=== PATIENT | male | born 1980 | race Caucasian/White ===

== ENCOUNTER 2016-11-11 11:32 | Emergency (ER) | payer OTHER ==
--- NOTE | 2016-11-11 12:27 | ED NURSING NOTES ---
Clinical Report - Nurses [facility] [address] [place] [address] 11/11/2016 11:35 Patient: CHRISTELLE SOLIS TRIAGE Acuity: LEVEL 3. Chief Complaint: SKIN PROBLEM and BOIL. Alert. No acute distress. SEPSIS SCREEN: Sepsis Screen. Negative (no infection suspected/documented). --11:52 Evelyn Bacon R.N. 11:49 11/11/16. BP: 145/87. HR: 92. RR: 12. O2 saturation: 100%. Temp: 98.3 F (oral). Pain level now: 12/11. --11:52 Evelyn Bacon R.N. Weight: 72.5 kg stated. Height/Length: 68 inches Per Patient. BMI: 24.3. --11:51 Evelyn Bacon R.N. Medications Lisinopril Oral. --11:50 Evelyn Bacon R.N. Medication/allergy information source: the patient. --11:52 Evelyn Bacon R.N. Allergies No Known Drug Allergy. --11:50 Evelyn Bacon R.N. History Arrived by private vehicle. Historian: patient. Unaccompanied. Primary physician (Ce). Reported as located on the abdomen. Onset. (5 days ago). 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 PAST MEDICAL HX: Immunizations: up-to-date. SOCIAL HX: Never smoker. No alcohol use or drug use. FALL RISK ASSESSMENT: Fall risk assessment completed. No fall risk identified. NUTRITIONAL RISK ASSESSMENT: The nutritional risk assessment revealed no deficiencies. FUNCTIONAL ASSESSMENT: Functional assessment: no impairments noted. LEARNING NEEDS ASSESSMENT: The learning needs assessment revealed no barriers. SKIN INTEGRITY ASSESSMENT: Skin integrity risk assessment completed. No skin integrity risk identified. --11:52 Evelyn Bacon R.N. PROBLEMS: Hypertension. --11:51 Evelyn Bacon R.N. ADDITIONAL SURGERIES: Hip Surgery. Knee Surgery. --11:51 Evelyn Bacon R.N. Assessment GENERAL / NEURO / PSYCH: Alert. Oriented X 4. Appears in no acute distress. Patient appears calm and cooperative. RESPIRATORY: Respirations not labored. CVS: Capillary refill less than 2 seconds. GI / : Abdomen nontender. SKIN: Mucous membranes are pink. Skin is warm and dry. --11:52 Evelyn Bacon R.N. Interventions ID band on patient. To treatment room. --11:52 Evelyn Bacon R.N. PHYSICAL ASSESSMENT 11:55 11/11/16. Ambulatory to room. GENERAL / NEURO / PSYCH: Alert. The patient does not appear to be in acute distress. Oriented X 4. HEENT: Mucous membranes are pink. RESPIRATORY: Respirations not labored. CVS: Capillary refill less than 2 seconds. GI / : Abdomen nontender. SKIN: Skin is warm and dry. Single skin lesion with erythema, tenderness and increased warmth on the abdomen. No skin rash. --11:55 Evelyn Bacon R.N. NURSING PROGRESS NOTES 11:55 11/11/16. Patient gowned. Two patient identifiers checked. Call light placed in reach. Side rails up x 1. Patient ready for evaluation- chart flagged and ED physician notified. --11:55 Evelyn Bacon R.N. 12:36 11/11/2016 TDAP IM 0.5 mL given. (Lot#: [id number], expiration date: 06/10/2018). Given in the left deltoid. Allergies verified and confirmed 5 rights. Vaccine information statement provided to the patient. --12:46 Evelyn Bacon R.N. 12:36 11/11/2016 Bactrim DS (Sulfamethoxazole-TMP DS) PO 1 tab given. Allergies verified and confirmed 5 rights. --12:46 Evelyn Bacon R.N. 12:36 11/11/2016 Keflex (Cephalexin) PO 500 mg given. Allergies verified and confirmed 5 rights. --12:46 Evelyn Bacon R.N. DISPOSITION / DISCHARGE 12:40. Condition at departure: improved. No learning barriers present. Discharge instructions provided and reviewed with the patient. Reviewed medication(s) side effects, precautions, dosing and course information. Prescription(s) given to the patient. Patient verbalized understanding. Written instructions provided in [place]. The patient was discharged home and accompanied by nurse educator. He left the Emergency Department ambulatory and via private vehicle. Cellophaner driving. Medication list reviewed and validated. --13:13 Leonela Dobbs R.N. 11:49 11/11/16. BP: 145/87. HR: 92. RR: 12. O2 saturation: 100%. Temp: 98.3 F (oral). Pain level now: 12/11. --13:13 Leonela Dobbs R.N. Locked/Released at 11/11/2016 13:14 by Leonela Dobbs R.N.
--- NOTE | 2016-11-11 12:27 | ED CLINICAL REPORT ---
Clinical Report - Physicians/Mid Levels [facility] [address] [place] [address] 11/11/2016 11:35 [id number] Time Seen: 12:04 Nov 11 2016. Arrived- By private vehicle. Historian- patient. HISTORY OF PRESENT ILLNESS Chief Complaint: SKIN RASH. 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 It has been located on the trunk. A possible cause has been identified. (patient reports recently released from alf about 3 months previously, reports some swelling to the abdomen and some drainage from the area over the last 5 days, patient does shave in area, last treatment about 7 days previously. Denies history of MRSA. Unsure of his last tetanus immunization, believes maybe in 1999. Denies fevers or chills. Denies any direct trauma to the area. Denies nausea or vomiting. Denies diarrhea.). REVIEW OF SYSTEMS No fever, cough or eye irritation. All systems otherwise negative, except as recorded above. SOCIAL HISTORY Never smoker. No alcohol use or drug use. ADDITIONAL NOTES The nursing notes have been reviewed. PHYSICAL EXAM Vital Signs: 11/11/2016 11:49 BP: 145/87. HR: 92. RR: 12. O2 saturation: 100%. Temp: 98.3 F. Pain level now: 4/10. Appearance: Alert. CVS: Normal heart rate and rhythm. Heart sounds normal. Respiratory: No respiratory distress. Breath sounds normal. Skin: Tender indurated area. Cellulitis. Abscess. Rash present on the trunk (superior to umbilicus). There is warmth, tenderness and swelling. PROGRESS AND PROCEDURES Incision & Drainage of Abscess: Time: 12:40 Nov 11 2016. Time-out completed immediately before the procedure. The abscess is located (abd). The risks of the procedure, benefits and alternatives were explained. Consent was obtained. Local anesthesia provided using 1% lidocaine with epi. The abscess was incised with a #11 surgical blade. A small amount of pus was drained. Cavity was packed with gauze. Sample obtained for cultures. A dressing was applied. Course of Care: Incision and drainage with purulent discharge. Patient afebrile, nonseptic. Isolated abscess,packed. Patient given recent exposures to MRSA and alf, will be started on Bactrim and Keflex. Culture pending. Patient is stable. Physical exam findings are improved. Patient/family counseled. Disposition: Discharged. CLINICAL IMPRESSION Single abscess to the abdominal wall with incision and drainage. Hypertension. INSTRUCTIONS (warm packs remove packing in 48 hours in shower). Prescription Medications: Bactrim DS 800 mg / 160 mg: take 1 tablet orally every 12 hours for 10 days. No refill. Substitution is permissible. Keflex 500 mg: take 1 capsule orally every 8 hours for 10 days. No refill. Substitution is permissible. OTC Medications: Take OTC medications according to label instructions. Available over the counter. Acetaminophen (available over the counter): take according to label instructions. Motrin (available over the counter): take according to label instructions. Follow-up: Follow up with your doctor Sunday as needed. (Electronically signed by Maria Isabel Holbrook P.A.-C 11/11/2016 12:41)
--- NOTE | 2016-11-11 12:27 | ED ORDER SUMMARY ---
..... Patient: CHRISTELLE SOLIS OrderSheet [facility] VisitID: [id number] [place] [address] 36y, M Registration Date/Time: 11/11/2016 ORDER SHEET Weight: 72.5 kg (stated) Allergies: No Known Drug Allergy GENERAL ORDERS: Culture, Wound Surface (Abdomen) (ab) Urgent (12:15 11/11/2016 EKoroleva P.A.-C) (Ack 12:17 LTapper) (12:45 MWinterer R.N.) MEDICATION ORDERS: Tdap IM 0.5 mL (NOW, per protocol) (12:15 11/11/2016 EKoroleva P.A.-C) (Ack 12:30 MWinterer R.N.) (12:46 MWinterer R.N.) Bactrim DS PO (Tablet 800-160 mg) 1 tab (NOW) (12:15 11/11/2016 EKoroleva P.A.-C) (Ack 12:30 MWinterer R.N.) (12:46 MWinterer R.N.) Keflex PO 500 mg (NOW) (12:15 11/11/2016 EKoroleva P.A.-C) (Ack 12:30 MWinterer R.N.) (12:46 MWinterer R.N.) IV FLUIDS: ORDER SHEET NOTES: [Electronically signed by Maria Isabel Holbrook P.A.-C (12:41 11/11/2016)] [Electronically signed by Leonela Dobbs R.N. (13:14 11/11/2016)] [Electronically locked/signed by Leonela Dobbs R.N. (13:14 11/11/2016)]
--- NOTE | 2016-11-11 12:27 | ED CLINICAL REPORT ---
Clinical Report - Physicians/Mid Levels [facility] [address] [place] [address] 11/11/2016 11:35 [id number] Time Seen: 12:04 Nov 11 2016. Arrived- By private vehicle. Historian- patient. HISTORY OF PRESENT ILLNESS Chief Complaint: SKIN RASH. 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 It has been located on the trunk. A possible cause has been identified. (patient reports recently released from [facility] about 3 months previously, reports some swelling to the abdomen and some drainage from the area over the last 5 days, patient does shave in area, last treatment about 7 days previously. Denies history of MRSA. Unsure of his last tetanus immunization, believes maybe in 1999. Denies fevers or chills. Denies any direct trauma to the area. Denies nausea or vomiting. Denies diarrhea.). REVIEW OF SYSTEMS No fever, cough or eye irritation. All systems otherwise negative, except as recorded above. SOCIAL HISTORY Never smoker. No alcohol use or drug use. ADDITIONAL NOTES The nursing notes have been reviewed. PHYSICAL EXAM Vital Signs: 11/11/2016 11:49 BP: 145/87. HR: 92. RR: 12. O2 saturation: 100%. Temp: 98.3 F. Pain level now: 4/10. Appearance: Alert. CVS: Normal heart rate and rhythm. Heart sounds normal. Respiratory: No respiratory distress. Breath sounds normal. Skin: Tender indurated area. Cellulitis. Abscess. Rash present on the trunk (superior to umbilicus). There is warmth, tenderness and swelling. PROGRESS AND PROCEDURES Incision & Drainage of Abscess: Time: 12:40 Nov 11 2016. Time-out completed immediately before the procedure. The abscess is located (abd). The risks of the procedure, benefits and alternatives were explained. Consent was obtained. Local anesthesia provided using 1% lidocaine with epi. The abscess was incised with a #11 surgical blade. A small amount of pus was drained. Cavity was packed with gauze. Sample obtained for cultures. A dressing was applied. Course of Care: Incision and drainage with purulent discharge. Patient afebrile, nonseptic. Isolated abscess,packed. Patient given recent exposures to MRSA and [facility], will be started on Bactrim and Keflex. Culture pending. Patient is stable. Physical exam findings are improved. Patient/family counseled. Disposition: Discharged. CLINICAL IMPRESSION Single abscess to the abdominal wall with incision and drainage. Hypertension. INSTRUCTIONS (warm packs remove packing in 48 hours in shower). Prescription Medications: Bactrim DS 800 mg / 160 mg: take 1 tablet orally every 12 hours for 10 days. No refill. Substitution is permissible. Keflex 500 mg: take 1 capsule orally every 8 hours for 10 days. No refill. Substitution is permissible. OTC Medications: Take OTC medications according to label instructions. Available over the counter. Acetaminophen (available over the counter): take according to label instructions. Motrin (available over the counter): take according to label instructions. Follow-up: Follow up with your doctor Sunday as needed. (Electronically signed by Maria Isabel Holbrook P.A.-C 11/11/2016 12:41)
--- NOTE | 2016-11-11 12:27 | ED NURSING NOTES ---
Clinical Report - Nurses [facility] [address] [place] [address] 11/11/2016 11:35 Patient: CHRISTELLE SOLIS TRIAGE Acuity: LEVEL 3. Chief Complaint: SKIN PROBLEM and BOIL. Alert. No acute distress. SEPSIS SCREEN: Sepsis Screen. Negative (no infection suspected/documented). --11:52 Evelyn Bacon R.N. 11:49 11/11/16. BP: 145/87. HR: 92. RR: 12. O2 saturation: 100%. Temp: 98.3 F (oral). Pain level now: 12/11. --11:52 Evelyn Bacon R.N. Weight: 72.5 kg stated. Height/Length: 68 inches Per Patient. BMI: 24.3. --11:51 Evelyn Bacon R.N. Medications Lisinopril Oral. --11:50 Evelyn Bacon R.N. Medication/allergy information source: the patient. --11:52 Evelyn Bacon R.N. Allergies No Known Drug Allergy. --11:50 Evelyn Bacon R.N. History Arrived by private vehicle. Historian: patient. Unaccompanied. Primary physician (Ce). Reported as located on the abdomen. Onset. (5 days ago). 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 PAST MEDICAL HX: Immunizations: up-to-date. SOCIAL HX: Never smoker. No alcohol use or drug use. FALL RISK ASSESSMENT: Fall risk assessment completed. No fall risk identified. NUTRITIONAL RISK ASSESSMENT: The nutritional risk assessment revealed no deficiencies. FUNCTIONAL ASSESSMENT: Functional assessment: no impairments noted. LEARNING NEEDS ASSESSMENT: The learning needs assessment revealed no barriers. SKIN INTEGRITY ASSESSMENT: Skin integrity risk assessment completed. No skin integrity risk identified. --11:52 Evelyn Bacon R.N. PROBLEMS: Hypertension. --11:51 Evelyn Bacon R.N. ADDITIONAL SURGERIES: Hip Surgery. Knee Surgery. --11:51 Evelyn Bacon R.N. Assessment GENERAL / NEURO / PSYCH: Alert. Oriented X 4. Appears in no acute distress. Patient appears calm and cooperative. RESPIRATORY: Respirations not labored. CVS: Capillary refill less than 2 seconds. GI / : Abdomen nontender. SKIN: Mucous membranes are pink. Skin is warm and dry. --11:52 Evelyn Bacon R.N. Interventions ID band on patient. To treatment room. --11:52 Evelyn Bacon R.N. PHYSICAL ASSESSMENT 11:55 11/11/16. Ambulatory to room. GENERAL / NEURO / PSYCH: Alert. The patient does not appear to be in acute distress. Oriented X 4. HEENT: Mucous membranes are pink. RESPIRATORY: Respirations not labored. CVS: Capillary refill less than 2 seconds. GI / : Abdomen nontender. SKIN: Skin is warm and dry. Single skin lesion with erythema, tenderness and increased warmth on the abdomen. No skin rash. --11:55 Evelyn Bacon R.N. NURSING PROGRESS NOTES 11:55 11/11/16. Patient gowned. Two patient identifiers checked. Call light placed in reach. Side rails up x 1. Patient ready for evaluation- chart flagged and ED physician notified. --11:55 Evelyn Bacon R.N. 12:36 11/11/2016 TDAP IM 0.5 mL given. (Lot#: [id number], expiration date: 06/10/2018). Given in the left deltoid. Allergies verified and confirmed 5 rights. Vaccine information statement provided to the patient. --12:46 Evelyn Bacon R.N. 12:36 11/11/2016 Bactrim DS (Sulfamethoxazole-TMP DS) PO 1 tab given. Allergies verified and confirmed 5 rights. --12:46 Evelyn Bacon R.N. 12:36 11/11/2016 Keflex (Cephalexin) PO 500 mg given. Allergies verified and confirmed 5 rights. --12:46 Evelyn Bacon R.N. DISPOSITION / DISCHARGE 12:40. Condition at departure: improved. No learning barriers present. Discharge instructions provided and reviewed with the patient. Reviewed medication(s) side effects, precautions, dosing and course information. Prescription(s) given to the patient. Patient verbalized understanding. Written instructions provided in [place]ian. The patient was discharged home and accompanied by supervisor mending. He left the Emergency Department ambulatory and via private vehicle. Information Operator driving. Medication list reviewed and validated. --13:13 Leonela Dobbs R.N. 11:49 11/11/16. BP: 145/87. HR: 92. RR: 12. O2 saturation: 100%. Temp: 98.3 F (oral). Pain level now: 12/11. --13:13 Leonela Dobbs R.N. Locked/Released at 11/11/2016 13:14 by Leonela Dobbs R.N.
--- NOTE | 2016-11-11 12:27 | ED ORDER SUMMARY ---
..... Patient: CHRISTELLE SOLIS OrderSheet [facility] VisitID: [id number] [place] [address] 36y, M Registration Date/Time: 11/11/2016 ORDER SHEET Weight: 72.5 kg (stated) Allergies: No Known Drug Allergy GENERAL ORDERS: Culture, Wound Surface (Abdomen) (ab) Urgent (12:15 11/11/2016 EKoroleva P.A.-C) (Ack 12:17 LTapper) (12:45 MWinterer R.N.) MEDICATION ORDERS: Tdap IM 0.5 mL (NOW, per protocol) (12:15 11/11/2016 EKoroleva P.A.-C) (Ack 12:30 MWinterer R.N.) (12:46 MWinterer R.N.) Bactrim DS PO (Tablet 800-160 mg) 1 tab (NOW) (12:15 11/11/2016 EKoroleva P.A.-C) (Ack 12:30 MWinterer R.N.) (12:46 MWinterer R.N.) Keflex PO 500 mg (NOW) (12:15 11/11/2016 EKoroleva P.A.-C) (Ack 12:30 MWinterer R.N.) (12:46 MWinterer R.N.) IV FLUIDS: ORDER SHEET NOTES: [Electronically signed by Maria Isabel Holbrook P.A.-C (12:41 11/11/2016)] [Electronically signed by Leonela Dobbs R.N. (13:14 11/11/2016)] [Electronically locked/signed by Leonela Dobbs R.N. (13:14 11/11/2016)]
--- NOTE | 2016-11-11 13:14 | ED MAR SUMMARY ---
..... Medication Administration Record [facility] [address] [place] [address] Patient: CHRISTELLE SOLIS Visit ID: [id number] 36y, M Weight: 72.5 kg Height/Length: 68 in BMI: 24.3 ALLERGIES: No Known Drug Allergy Given 12:11/11/2016 Evelyn Bacon RMehrdad Medication Administered: TDAP [IM], Dose: 0.5 mL IM. Medication Ordered: Tdap IM 0.5 mL (NOW, per protocol). Given 12:11/11/2016 Evelyn Bacon RMeliaNMelia Medication Administered: BACTRIM DS [PO] (SULFAMETHOXAZOLE-TMP DS), Dose: 1 tab PO. Medication Ordered: Bactrim DS PO (Tablet 800-160 mg) 1 tab (NOW). Given 12:11/11/2016 Evelyn Bacon, RMeliaNMelia Medication Administered: KEFLEX [PO] (CEPHALEXIN), Dose: 500 mg PO. Medication Ordered: Keflex PO 500 mg (NOW).
--- NOTE | 2016-11-11 13:14 | ED MED RECONCILIATION SUMMARY ---
Patient: CHRISTELLE SOLIS Medication Reconciliation Report [facility] VisitID: [id number] [place] [address] 36y, M Registration Date/Time: 11/11/2016 Weight: 72.5 kg Height/Length: 68 in. BMI: 24.3 ALLERGIES: No Known Drug Allergy The patient's Home Medications are listed below: THE FOLLOWING MEDICATIONS NEED TO BE RECONCILED: Lisinopril Oral The source(s) of the original Home Medication information: patient The following Medications were given to the patient in the Emergency Department: TDAP [IM] IM 0.5 mL, administered: 11/11/2016 12:36:00 PM Bactrim DS [PO] PO 1 tab, administered: 11/11/2016 12:36:00 PM Keflex [PO] PO 500 mg, administered: 11/11/2016 12:36:00 PM The following Medications were prescribed to the patient: Take OTC medications according to label instructions. Available over the counter. -- Maria Isabel Holbrook, P.A.-C Acetaminophen (available over the counter): take according to label instructions. -- Maria Isabel Holbrook, P.A.-C Motrin (available over the counter): take according to label instructions. -- Maria Isabel Holbrook, P.A.-C Bactrim DS 800 mg / 160 mg: take 1 tablet orally every 12 hours for 10 days. No refill. Substitution is permissible. -- Maria Isabel Holbrook, P.A.-C Keflex 500 mg: take 1 capsule orally every 8 hours for 10 days. No refill. Substitution is permissible. -- Maria Isabel Holbrook, P.A.-C
--- NOTE | 2016-11-11 13:14 | ED MED RECONCILIATION SUMMARY ---
Patient: CHRISTELLE SOLIS Medication Reconciliation Report [facility] VisitID: [id number] [place] [address] 36y, M Registration Date/Time: 11/11/2016 Weight: 72.5 kg Height/Length: 68 in. BMI: 24.3 ALLERGIES: No Known Drug Allergy The patient's Home Medications are listed below: THE FOLLOWING MEDICATIONS NEED TO BE RECONCILED: Lisinopril Oral The source(s) of the original Home Medication information: patient The following Medications were given to the patient in the Emergency Department: TDAP [IM] IM 0.5 mL, administered: 11/11/2016 12:36:00 PM Bactrim DS [PO] PO 1 tab, administered: 11/11/2016 12:36:00 PM Keflex [PO] PO 500 mg, administered: 11/11/2016 12:36:00 PM The following Medications were prescribed to the patient: Take OTC medications according to label instructions. Available over the counter. -- Maria Isabel Holbrook, P.A.-C Acetaminophen (available over the counter): take according to label instructions. -- Maria Isabel Holbrook, P.A.-C Motrin (available over the counter): take according to label instructions. -- Maria Isabel Holbrook, P.A.-C Bactrim DS 800 mg / 160 mg: take 1 tablet orally every 12 hours for 10 days. No refill. Substitution is permissible. -- Maria Isabel Holbrook, P.A.-C Keflex 500 mg: take 1 capsule orally every 8 hours for 10 days. No refill. Substitution is permissible. -- Maria Isabel Holbrook, P.A.-C
--- NOTE | 2016-11-11 13:14 | ED DISCHARGE INSTRUCTIONS ---
Patient: CHRISTELLE SOLIS General Instructions [facility] VisitID: [id number] [place] [address] 36y, M Registration Date/Time: 11/11/2016 Single abscess to the abdominal wall with incision and drainage. Hypertension. INSTRUCTIONS (warm packs remove packing in 48 hours in shower). Prescription Medications: Bactrim DS 800 mg / 160 mg: take 1 tablet orally every 12 hours for 10 days. No refill. Substitution is permissible. Keflex 500 mg: take 1 capsule orally every 8 hours for 10 days. No refill. Substitution is permissible. OTC Medications: Take OTC medications according to label instructions. Available over the counter. Acetaminophen (available over the counter): take according to label instructions. Motrin (available over the counter): take according to label instructions. Follow-up: Follow up with your doctor Sunday as needed. ADDITIONAL INFORMATION Abscess [Incision & Drainage] An abscess (sometimes called a boil) occurs when bacteria get trapped under the skin and begin to grow. Pus forms inside the abscess as the body responds to the bacteria. An abscess can occur with an insect bite, ingrown hair, blocked oil gland, pimple, cyst, or puncture wound. Treatment of your abscess has required an incision to drain the pus. If the abscess pocket was large, a gauze packing may have been inserted. This will need to be removed and possibly replaced on your next visit. Antibiotics are not required in the treatment of a simple abscess, unless the infection is spreading into the skin around the wound (known as cellulitis). Healing of the wound will take about one to two weeks depending on the size of the abscess. Healthy tissue will grow from the bottom and sides of the opening until it seals over. Home Care: The wound may drain for the first two days. Cover the wound with a clean dry dressing. If the dressing becomes soaked with blood or pus, change it. If a gauze packing was placed inside the abscess cavity, you may be advised to remove it yourself. You may do this in the shower. Once the packing is removed, you should wash the area in the shower or bath 3 to 4 times a day, until the skin opening has closed. If you were prescribed antibiotics, take them as directed until they are all gone. You may use acetaminophen (Tylenol) or ibuprofen (Motrin, Advil) to control pain, unless another pain medicine was prescribed. [ NOTE: If you have liver disease or ever had a stomach ulcer, talk with your doctor before using these medicines.] Follow Up with your doctor as advised by our staff. If a gauze packing was inserted in your wound, it should be removed in 1-2 days. Check your wound every day for the signs of worsening infection listed below. Get Prompt Medical Attention if any of the following occur: Increasing redness or swelling Red streaks in the skin leading away from the wound Increasing local pain or swelling Continued pus draining from the wound two days after treatment Fever of 100.4F (38C) or higher, or as directed by your healthcare provider High Blood Pressure -- To Be Confirmed [No Tx] Your blood pressure was higher today than normal. Sometimes anxiety or pain can cause a temporary rise in blood pressure that later returns to normal. If your blood pressure is high on one measurement, this does not mean that you have hypertension (a chronic illness). However, you must have your blood pressure measured again within the next few days to find out if its still high. A normal blood pressure is 120/80 or less. The first (top) number is the "systolic" pressure. The second (bottom) number is the "diastolic" pressure. Hypertension exists when either the top number is 140 or higher, OR the bottom number is 90 or higher on repeated measurements. Blood pressure in the range of 120-140 (systolic) or 80-89 (diastolic) is considered "pre-hypertension". This means your are at risk for getting hypertension. You should have regular blood pressure checks to be sure your blood pressure is not rising. Home Care: Measure your blood pressure on 3 different days and write down the results. This can be done at your doctor's office or this facility. Some pharmacies and grocery stores offer automated blood pressure machines for your use. Follow Up: If your blood pressure is "high" (over 120/80) on 2 out of 3 days, you will need to follow up with your doctor for further evaluation and treatment. DO NOT PUT THIS OFF! Untreated high blood pressure increases the risk for heart attack, also known as acute myocardial infarction, or AMI, and stroke. It is a treatable condition. Get Prompt Medical Attention if any of the following occur: Chest pain or shortness of breath Severe headache Throbbing or rushing sound in the ears Nosebleed Sudden severe abdominal pain Extreme drowsiness, confusion or fainting Dizziness or vertigo (dizziness with spinning sensation) Weakness of an arm or leg or one side of the face Difficulty with speech or vision Sulfamethoxazole, Trimethoprim Oral tablet What is this medicine? SULFAMETHOXAZOLE; TRIMETHOPRIM or SMX-TMP (suhl fuh meth OK robbie zohl; trye METH oh prim) is a combination of a sulfonamide antibiotic and a second antibiotic, trimethoprim. It is used to treat or prevent certain kinds of bacterial infections. It will not work for colds, flu, or other viral infections. How should I use this medicine? Take this medicine by mouth with a full glass of water. Follow the directions on the prescription label. Take your medicine at regular intervals. Do not take it more often than directed. Do not skip doses or stop your medicine early. Talk to your manufacturing project engineer regarding the use of this medicine in children. Special care may be needed. This medicine has been used in children as young as 2 months of age. What side effects may I notice from receiving this medicine? Side effects that you should report to your doctor or health director of career services as soon as possible: allergic reactions like skin rash or hives, swelling of the face, lips, or tongue breathing problems fever or chills, sore throat irregular heartbeat, chest pain joint or muscle pain pain or difficulty passing urine red pinpoint spots on skin redness, blistering, peeling or loosening of the skin, including inside the mouth unusual bleeding or bruising unusually weak or tired yellowing of the eyes or skin Side effects that usually do not require medical attention (report to your doctor or health director of career services if they continue or are bothersome): diarrhea dizziness headache loss of appetite nausea, vomiting nervousness What may interact with this medicine? Do not take this medicine with any of the following medications: aminobenzoate potassium dofetilide metronidazole This medicine may also interact with the following medications: YOVANNY inhibitors like benazepril, enalapril, lisinopril, and ramipril cyclosporine digoxin diuretics indomethacin medicines for diabetes methenamine methotrexate phenytoin potassium supplements pyrimethamine sulfinpyrazone tricyclic antidepressants warfarin What if I miss a dose? If you miss a dose, take it as soon as you can. If it is almost time for your next dose, take only that dose. Do not take double or extra doses. Where should I keep my medicine? Keep out of the reach of children. Store at room temperature between 20 to 25 degrees C (68 to 77 degrees F). Protect from light. Throw away any unused medicine after the expiration date. What should I tell my health care provider before I take this medicine? They need to know if you have any of these conditions: anemia asthma being treated with anticonvulsants if you frequently drink alcohol containing drinks kidney disease liver disease low level of folic acid or [id number] dehydrogenase poor nutrition or malabsorption porphyria severe allergies thyroid disorder an unusual or allergic reaction to sulfamethoxazole, trimethoprim, sulfa drugs, other medicines, foods, dyes, or preservatives or trying to get breast-feeding What should I watch for while using this medicine? Tell your doctor or health director of career services if your symptoms do not improve. Drink several glasses of water a day to reduce the risk of kidney problems. Do not treat diarrhea with over the counter products. Contact your doctor if you have diarrhea that lasts more than 2 days or if it is severe and watery. This medicine can make you more sensitive to the sun. Keep out of the sun. If you cannot avoid being in the sun, wear protective clothing and use a sunscreen. Do not use sun lamps or tanning beds/booths. Cephalexin Monohydrate Oral tablet What is this medicine? CEPHALEXIN (sef a JOSE in) is a cephalosporin antibiotic. It is used to treat certain kinds of bacterial infections It will not work for colds, flu, or other viral infections. How should I use this medicine? Take this medicine by mouth with a full glass of water. Follow the directions on the prescription label. This medicine can be taken with or without food. Take your medicine at regular intervals. Do not take your medicine more often than directed. Take all of your medicine as directed even if you think you are better. Do not skip doses or stop your medicine early. Talk to your manufacturing project engineer regarding the use of this medicine in children. While this drug may be prescribed for selected conditions, precautions do apply. What side effects may I notice from receiving this medicine? Side effects that you should report to your doctor or health director of career services as soon as possible: allergic reactions like skin rash, itching or hives, swelling of the face, lips, or tongue breathing problems pain or trouble passing urine redness, blistering, peeling or loosening of the skin, including inside the mouth severe or watery diarrhea unusually weak or tired yellowing of the eyes, skin Side effects that usually do not require medical attention (report to your doctor or health director of career services if they continue or are bothersome): gas or heartburn genital or anal irritation headache joint or muscle pain nausea, vomiting What may interact with this medicine? probenecid some other antibiotics What if I miss a dose? If you miss a dose, take it as soon as you can. If it is almost time for your next dose, take only that dose. Do not take double or extra doses. There should be at least 4 to 6 hours between doses. Where should I keep my medicine? Keep out of the reach of children. Store at room temperature between 59 and 86 degrees F (15 and 30 degrees C). Throw away any unused medicine after the expiration date. What should I tell my health care provider before I take this medicine? They need to know if you have any of these conditions: kidney disease stomach or intestine problems, especially colitis an unusual or allergic reaction to cephalexin, other cephalosporins, penicillins, other antibiotics, medicines, foods, dyes or preservatives or trying to get breast-feeding What should I watch for while using this medicine? Tell your doctor or health director of career services if your symptoms do not begin to improve in a few days. Do not treat diarrhea with over the counter products. Contact your doctor if you have diarrhea that lasts more than 2 days or if it is severe and watery. If you have diabetes, you may get a false-positive result for sugar in your urine. Check with your doctor or health director of career services. You have been given the following additional information: Abscess, Incision And Drainage Hypertension, To Be Confirmed Sulfamethoxazole, Trimethoprim Oral tablet Cephalexin Monohydrate Oral tablet (Electronically signed by Maria Isabel Holbrook P.A.-C 11/11/2016 12:41)
--- NOTE | 2016-11-11 13:14 | ED MAR SUMMARY ---
..... Medication Administration Record [facility] [address] [place] [address] Patient: CHRISTELLE SOLIS Visit ID: [id number] 36y, M Weight: 72.5 kg Height/Length: 68 in BMI: 24.3 ALLERGIES: No Known Drug Allergy Given 12:11/11/2016 Evelyn Bacon RMehrdad Medication Administered: TDAP [IM], Dose: 0.5 mL IM. Medication Ordered: Tdap IM 0.5 mL (NOW, per protocol). Given 12:11/11/2016 Evelyn Bacon RMeliaNMelia Medication Administered: BACTRIM DS [PO] (SULFAMETHOXAZOLE-TMP DS), Dose: 1 tab PO. Medication Ordered: Bactrim DS PO (Tablet 800-160 mg) 1 tab (NOW). Given 12:11/11/2016 Evelyn Bacon, RMeliaNMelia Medication Administered: KEFLEX [PO] (CEPHALEXIN), Dose: 500 mg PO. Medication Ordered: Keflex PO 500 mg (NOW).
== END 2016-11-11 13:13 | disposition home or self-care (01) ==
LOC: ED SRH 11:32
DX: L02.211 Cutaneous abscess of abdominal wall (principal); I10 Essential (primary) hypertension; Z23 Encounter for immunization
CPT/HCPCS: 90070; 90131; 90309; 91672